=== PATIENT | female | born 2000 | race Two or more races ===

== ENCOUNTER → 2024-10-20 | Outpatient (CLI) | payer BC, SELFPAY ==
[2024-10-20 12:24] LABS: Thyroid Stimulating Hormone 3.51 uIU/mL (0.55-4.78)
== END | disposition home or self-care (01) ==
LOC: COPL 11:26
PROVIDERS: PCP Internal Medicine; Referring Provider Internal Medicine; Visit Provider Internal Medicine
DX: E03.9 Hypothyroidism, unspecified (principal)
CPT/HCPCS: 36415; 84443

== ENCOUNTER 2024-10-23 12:35 | Day surgery (SDC) | payer BC, SELFPAY ==
[2024-10-20 12:56] LABS: HCG Qualitative,Urine Negative
[2024-10-20 15:09] VITALS: BMI 29.8
[2024-10-23] VITALS (10 sets, daily range): BP systolic 106–142; BP diastolic 70–92; PULSE 67–95; RESP 12–20; TEMP 36.6–36.8; O2SAT 96–100; BMI 30.8
[2024-10-23] MEDS: SODIUM CHLORIDE 0.9% 500 ML 500 ML 20 ML IV (14:31)
[2024-10-23] MEDS: fentaNYL CIT INJ 50 mCg/ML AMP 2ML (ASD USE ONLY) IVP (14:32)
[2024-10-23] MEDS: MIDAZOLAM INJ 1 MG/ML VIAL 2 ML (ASD USE ONLY) 2 MG IVP (14:32)
[2024-10-23] MEDS: LIDOCAINE JELLY 2% (Urojet) 10 ML TUBE TOP (14:58)
--- NOTE | 2024-10-23 15:10 | SUR.PHASEII ---
1435 PATIENT INTO RECOVERY WITH NO ACUTE DISTRESS NOTED, V/S STABLE, PATIENT DENIES PAIN AND NAUSEA AT THIS TIME, PATIENT ACTIVELY PASSING FLATUS. REPORT RECEIVED FROM HILARIO ANGEL. 1455 PATIENT REPOSITIONS SELF FOR COMFORT, PATIENT DRINKING WATER WITH NO DIFFICULTY. 1506 PATIENT AMBULATES TO THE BATHROOM WITH NO ASSISTANCE NEEDED, PT HAS STEADY GAIT. 1507 D/C INSTRUCTIONS GIVEN TO PATIENT AND PATIENT'S MOTHER. 1510 PATIENT D/C'ed HOME.
== END 2024-10-23 15:10 | disposition home or self-care (01) ==
PROVIDERS: PCP Internal Medicine; Referring Provider Specialist; Visit Provider Specialist
PROC: 0DBE8ZX Excision of Large Intestine, Via Natural or Artificial Opening Endoscopic, Diagnostic (ICD-10-PCS; CPT 45380; principal; 2024-10-23 13:15)
DX: K64.2 Third degree hemorrhoids (principal)
CPT/HCPCS: 45350; 81025; A4649; J1200; J2250; J3010; J7999